=== PATIENT | female | born 1955 | race Caucasian/White ===

== ENCOUNTER 2017-04-29 09:37 | Outpatient (CLI) | payer OTHER ==
--- NOTE | 2017-04-29 15:19 | PRG ---
DATE OF SERVICE: 04/29/2017 HISTORY: Ms. Desiree Saleem is a pleasant 61-year-old last seen in the [facility] on 04/03/2014 f or evaluation of bilateral plantar ulcerations, again today the patient presents to the [facility] with bilateral plantar ulcerations. Since the patient's last visit to the [facility] Center, Ms. Saleem has been followed by Dr. Cohen. She states that she is no longer able to be seen by Dr. Cohen for reasons related to her insurance. The patient states that her wounds had almost healed completely, but the dimensions of each wound increased when she ran out of dressing supplies. The patient has no other complaints today. She denies any fever or chills. PHYSICAL EXAMINATION: VITAL SIGNS: Temperature 97.5, pulse 67, respirations 17, blood pressure 102/49. Accu-Chek 95. EXTREMITIES: The ulceration of the plantar surface of the right foot measures approximately 5.5 x 6 .0 cm. The dimensions of the ulceration of the plantar surface of the left foot are approximately 4 .1 x 1.9 cm. Granulation tissue is present within the margins of each wound. No purulent drainage is associated with either wound. No erythema of the skin surrounding either wound is present. No m aceration of the skin of the periwound of either wound is noted. No significant edema of the right or left foot is present on exam today. ASSESSMENT AND PLAN: 1. Plantar ulcerations of right and left feet as described above. Dressing changes of Aquacel AG, 4 x 4s, ABDs, and Kerlix will be continued. Arrangements will be made for the home delivery of dres sing supplies. The preceding dressing changes are to be performed on a daily basis after cleansing and irrigation. I have asked the patient to sign for the release of her records from Dr. Cohen. I will see Ms. Saleem again when these records have been obtained. 2. Diabetes mellitus. The patient's Accu-Chek in clinic today is 95. The patient has been told th at for optimal wound healing, her blood glucoses should remain below 150.
[2017-04-29] MEDS ORDERED: Sodium Chloride 0.9% 15 ML NEB ONE (17:41)
== END 2017-04-29 09:38 | disposition home or self-care (01) ==
LOC: WCC 09:37
PROVIDERS: ATTEND Family Medicine
DX: L97.519 Non-pressure chronic ulcer of other part of right foot with unspecified severity (principal); L97.529 Non-pressure chronic ulcer of other part of left foot with unspecified severity; E11.621 Type 2 diabetes mellitus with foot ulcer
CPT/HCPCS: 36416; 97602; A4218

== ENCOUNTER 2017-06-24 10:44 | Outpatient (CLI) | payer OTHER ==
[2017-06-24] MEDS ORDERED: Sodium Chloride 0.9% 15 ML NEB ONE (10:58)
--- NOTE | 2017-06-24 19:54 | PRG ---
DATE OF SERVICE: 06/24/2017 HISTORY: Ms. Desiree Saleem is a pleasant 61-year-old who presents to the [facility] for evaluation of bilateral plantar ulcerations. The patient previously stated that she had been followed by Dr. Jane oneill. She stated that her wounds had almost healed completely, but the dimensions of each wound incr eased when she ran out of dressing supplies. Arrangements were made for the home delivery of dressin g supplies at the time of the patient's visit on 04/29/2017. Today, Ms. Saleem states that she has no t received any dressing supplies by home delivery. The patient complains of pain associated with her plantar ulcerations. She has no other complaints today. She denies any fever or chills. PHYSICAL EXAMINATION: VITAL SIGNS: Temperature 97.5, pulse 86, respirations 18, blood pressure 148/66. Accu-Chek 256. EXTREMITIES: The ulceration of the plantar surface of the right foot measures approximately 7.2 x 6. 2 cm. The ulceration of the plantar surface of the left foot measures approximately 4.4 x 2.7 cm. G ranulation tissue is present within the margins of each wound. A bone fragment present within the ma rgins of the right plantar ulceration was extracted with forceps and sent for aerobic, anaerobic, and fungal cultures. No purulent drainage is associated with either wound. No erythema of the skin minnie rounding either wound is present. No maceration of the skin of the periwound of either wound is note d. A dorsalis pedis pulse is palpable on the right and on the left. No significant edema of the rig ht or left foot is present on exam today. ASSESSMENT AND PLAN: 1. Plantar ulcerations of right and left feet as described above. Dressing changes of Aquacel AG, 4 x 4s, ABDs, and Kerlix are to be performed on a daily basis after cleansing and irrigation. Arrange ments will again be made for the home delivery of dressing supplies. The patient has also been given a prescription for Bactrim DS #20 one p.o. b.i.d. x10 days. I will see Ms. Cohen again in 12 weeks . 2. Diabetes mellitus. The patient's Accu-Chek in clinic today is 256. The patient has been reminde d that for optimal wound healing, her blood glucoses should remain below 150.
== END 2017-06-24 10:45 | disposition home or self-care (01) ==
LOC: WCC 10:44
PROVIDERS: ATTEND Family Medicine
DX: E11.621 Type 2 diabetes mellitus with foot ulcer (principal); L97.429 Non-pressure chronic ulcer of left heel and midfoot with unspecified severity; L97.419 Non-pressure chronic ulcer of right heel and midfoot with unspecified severity
CPT/HCPCS: 87070; 87077; 87102; 87186; 87205; 87206; 97602; A4218